=== PATIENT | female | born 2005 | race African-American/Black ===

== ENCOUNTER 2025-02-24 10:00 | Emergency (ER) | payer OTHER ==
[~2025-02-24] VITALS: Ht 165.1 cm; Wt 100.0 kg
[2025-02-24 10:04] VITALS: TEMP 98.4
[2025-02-24] MEDS: IBUPROFEN 600 MG TABLET PO ONE (11:09)
[2025-02-24] MEDS: LIDOCAINE 5% TRANSDERMAL PATCH TD ONE (11:41)
[2025-02-24] MEDS ORDERED: METH-659 PO (12:36)
[2025-02-24] MEDS ORDERED: IBUP-1492 PO (12:36)
[2025-02-24 12:50] VITALS: BP 133/76; PULSE 88; RESP 18; O2SAT 100
== END 2025-02-24 13:08 | disposition home or self-care (01) ==
LOC: EMS 10:02
DX: S39.012A Strain of muscle, fascia and tendon of lower back, initial encounter (principal); X58.XXXA Exposure to other specified factors, initial encounter; Y93.89 Activity, other specified; Y92.89 Other specified places as the place of occurrence of the external cause; Y99.8 Other external cause status
CPT/HCPCS: 99284; Z7502; Z7610